=== PATIENT | female | born 1945 | race Caucasian/White ===

== ENCOUNTER 2024-12-08 11:46 | Emergency (ER) | payer OTHER ==
[~2024-12-08] VITALS: Ht 165.1 cm; Wt 97.1 kg
[2024-12-08 12:54] LABS: Basophils # (auto) 0.1 10 ^3/uL (0-0.2); Eosinophils # (auto) 0.1 10 ^3/uL (0-0.8); Eosinophils % (auto) 1.4 % (0.0-7.0); Hematocrit 37.2 % (36.0-46.0); Hemoglobin 12.4 g/dL (12.2-16.2); Lymphocytes # (auto) 1.5 10 ^3/uL (0.4-5.4); Lymphocytes % (auto) 16.4 % (10.0-50.0); Mean Corpuscular Hemoglobin 27.5 pg (28.0-32.0); Mean Corpuscular Hgb Conc. 33.3 g/dL (32.0-36.0); Mean Corpuscular Volume 82.4 fL (80.0-100.0); Monocytes # (auto) 0.8 10 ^3/uL (0-1.3); Monocytes % (auto) 8.3 % (0.0-12.0); Neutrophils # (auto) 6.6 10 ^3/uL (1.6-8.6); Neutrophils % (auto) 72.9 % (37.0-80.0); Nucleated Red Blood Cells % 0.1 %; Platelet Count (auto) 256 10^3/uL (140-450); Red Blood Cells 4.51 10^6/uL (4.0-5.20); Red Cell Distribution Width 16.9 % (11.8-14.3); White Blood Cell 9.1 10^3/uL (4.4-10.8)
--- NOTE | 2024-12-08 12:56 | ED.PDOC ---
Musculoskeletal HPI Comments 79y F who presents to the ED for chief complaint of R leg pain. Pt states she has been having bilateral lower extremity swelling since late September 2024. Pt states she has noted increased swelling since and states over the past few days, noticed shortness of breath, nausea and dysuria. Pt states she has history of DM and states she has recently seen media librarian and state she had some of her DM medications changed and adjusted. Pt in the ED, has extensive history including DM, HTN, HLD, thyroid disease, DVT x2, CKD x 3 with noted aortic stenosis. Pt otherwise denies chest pain, shortness of breath, fever, cough, chills, headache, fever, or dizziness. Pt in the ED, is able to bear weight on her bilateral lower extremities. Pt otherwise denies any other symptoms at this time. Time Seen by MD: 12:37 Reviewed Notes: Nurses Notes, Medications, Allergies Information Source: Patient Mode of Arrival: Ambulatory Brought in by: self Location: Bilateral Extremity Location: Leg Timing: Hours, Weeks Prehospital treatment: None Severity: Moderate Able to Move Extremity: Yes Bear Weight: Limited Pain: Moderate Mechanism: Spontaneous Circumstances: Unknown Onset of Symptoms: Spontaneous Symptoms: Swelling, Pain DVT Risk Factors: NONE Last Tetanus: Unknown Associated signs and symptoms: SOB, Leg pain, None (dysuria) Past Medical History PAST MEDICAL HISTORY: CKF, DM, High Lipids, HTN, Thyroid Past Medical History (Other): aortic stenosis, Surgical History: Appendectomy, Hernia Repair, Hysterectomy, Tonsillectomy Surgical History (Other): carpal tunnel, CORRUGATOR History: Denies all CORRUGATOR Hx Family History Family History: Family hx of DM Social History Smoker: Non-Smoker Alcohol: Denies ETOH Use Drugs: Denies Drug Use Lives In: Home Constitutional: denies: chills, diaphoresis, fatigue, fever, malaise, sweats, weakness, others EENTM: denies: blurred vision, double vision, ear bleeding, ear discharge, ear drainage, ear pain, ear ringing, eye pain, eye redness, hearing loss, mouth pain, mouth swelling, nasal discharge, nose bleeding, nose congestion, nose pain, photophobia, tearing, throat pain, throat swelling, voice changes, others Respiratory: reports: shortness of breath; denies: cough, hemoptysis, orthopnea, SOB at rest, SOB with excertion, stridor, wheezing, others Cardiovascular: denies: chest pain, dizzy spells, diaphoresis, Dyspnea on exertion, edema, irregular heart beat, left arm pain, lightheadedness, palpitations, PND, syncope, others Gastrointestinal: reports: nausea; denies: abdomen distended, abdominal pain, blood streaked bowels, constipated, diarrhea, dysphagia, difficulty swallowing, hematemesis, melena, poor appetite, poor fluid intake, rectal bleeding, rectal pain, vomiting, others Genitourinary: reports: dysuria; denies: abnormal vagina bleeding, burning, dyspareunia, flank pain, frequency, hematuria, incontinence, pain, , vagina discharge, urgency, others Neurological: denies: dizziness, fainting, headache, left sided numbness, left sided weakness, numbness, paresthesia, pre-existing deficit, right sided numbness, right sided weakness, seizure, speech problems, tingling, tremors, weakness, others Musculoskeletal: reports: joint swelling (b/l lower extremity); denies: back pain, gout, joint pain, muscle pain, muscle stiffness, neck pain, others Integumetry: denies: bruises, change in color, change in hair/nails, dryness, laceration, lesions, lumps, rash, wounds, others Allergic/Immunocompromised: denies: Difficulty Healing, Frequent Infections, Hives, Itching, others Hematologic/Lymphatic: denies: anemia, blood clots, easy bleeding, easy bruising, swollen glands, others Endocrine: denies: excessive hunger, excessive sweating, excessive thirst, excessive urination, flushing, intolerance to cold, intolerance to heat, unexplained weight gain, unexplained weight loss, others Psychiatric: denies: anxiety, bipolar disorder, depression, hopeless, panic disorder, schizophrenia, sleepless, suicidal, others All Other Systems: Reviewed and Negative Physical Exam General Appearance: Moderate Distress HEENT: Normal ENT Inspection, Pharynx Normal, TMs Normal Neck: Full Range of Motion, Non-Tender, Normal, Normal Inspection Respiratory: Chest Non-Tender, Lungs Clear, No Accessory Muscle Use, No Respi ratory Distress, Normal Breath Sounds Cardiovascular: No Edema, No JVD, No Murmur, No Gallop, Normal Peripheral Pulses, Regular Rate/Rhythm Breast Exam: Deferred Gastrointestinal: No Organomegaly, Non Tender, No Pulsatile Mass, Normal Bowel Sounds, Soft Genitalia: Deferred Pelvic: Deferred Rectal: Deferred Extremities: No calf tenderness, Normal capillary refill, Pedal edema Musculoskeletal : Apperance: Normal Neurologic: Alert, slab puller II-XII nml as Tested, Motor Weakness, Normal Affect, Normal Mood, No Sensory Deficits Cerebellar Function: Normal Reflexes: Normal Skin: Dry, Normal Color, Warm Lymphatic: No Adenopathy Was a procedure done? Was a procedure done?: No EKG EKG : Pulse Rate (adult): 75 [place]: RAD Cardiac Rhythm: NSR Block: None Hypertrophy: None ST: Normal Differential Diagnosis EXT Differential Diagnosis: Cellulitis, CHF, Deep Vein Thrombosis, DJD Other Differential Diagnosis uncontrolled DM, neuropathy, X-Ray, Labs, Meds, VS Vital Signs Date Time Temp Pulse Resp B/P (MAP) Pulse Ox O2 Delivery O2 Flow Rate FiO2 12/08/24 14:51 171/66 12/08/24 13:27 74 20 95 Room Air* 0 21 12/08/24 13:10 98.2 74 20 144/67 (92) 95 98.2 12/08/24 12:56 75 12/08/24 12:39 75 12/08/24 12:02 98.3 74 18 163/63 (96) 94 98.3 Lab Test 12/08/24 13:51 12/08/24 12:43 12/08/24 12:25 12/08/24 12:19 Range/Units Troponin I High Sensitivity 6 6 </=34 ng/L White Blood Count 9.1 4.4-10.8 10^3/uL Red Blood Count 4.51 4.0-5.20 10^6/uL Hemoglobin 12.4 12.2-16.2 g/dL Hematocrit 37.2 36.0-46.0 % Mean Corpuscular Volume 82.4 80.0-100.0 fL Mean Corpuscular Hemoglobin 27.5 L 28.0-32.0 pg Mean Corpuscular Hemoglobin Concent 33.3 32.0-36.0 g/dL Red Cell Distribution Width 16.9 H 11.8-14.3 % Platelet Count 256 140-450 10^3/uL Mean Platelet Volume 7.9 6.9-10.8 fL Neutrophils (%) (Auto) 72.9 37.0-80.0 % Lymphocytes (%) (Auto) 16.4 10.0-50.0 % Monocytes (%) (Auto) 8.3 0.0-12.0 % Eosinophils (%) (Auto) 1.4 0.0-7.0 % Basophils (%) (Auto) 1.0 0.0-2.0 % Neutrophils # (Auto) 6.6 1.6-8.6 10 ^3/uL Lymphocytes # (Auto) 1.5 0.4-5.4 10 ^3/uL Monocytes # (Auto) 0.8 0-1.3 10 ^3/uL Eosinophils # (Auto) 0.1 0-0.8 10 ^3/uL Basophils # (Auto) 0.1 0-0.2 10 ^3/uL Nucleated Red Blood Cells 0.1 % D-Dimer, Quantitative 0.43 0.0-0.49 mg/L FEU Sodium Level 141 136-145 mmol/L Potassium Level 3.6 3.5-5.1 mmol/L Chloride Level 104 98-107 mmol/L Carbon Dioxide Level 28 20-31 mmol/L Anion Gap 9 5-15 Blood Urea Nitrogen 23 9-23 mg/dL Creatinine 1.26 H 0.550-1.02 mg/dL Glomerular Filtration Rate Calc 44 >90 mL/min BUN/Creatinine Ratio 18.3 10.0-20.0 Serum Glucose 273 H 74-106 mg/dL Calcium Level 9.8 8.7-10.4 mg/dL B-Type Natriuretic Peptide 178.92 0-100 pg/mL POC Glucose 250 H 70-106 mg/dl Urine Color Light-yellow Yellow Urine Clarity Turbid H Clear Urine pH 5.5 5.0-9.0 Urine Specific [place] 1.008 1.001-1.035 Urine Protein 1+ H Negative Urine Ketones Negative Negative Urine Blood 2+ H Negative /uL Urine Nitrite Negative Negative Urine Bilirubin Negative Negative Urine Urobilinogen Normal Negative mg/dL Urine Leukocyte Esterase 3+ Negative /uL Urine RBC 5 0 - 4 /hpf Urine Microscopic WBC 122 H 0-5 /HPF Urine Squamous Epithelial Cells None seen <5 /hpf Urine Bacteria Few H None Seen /hpf Urine Glucose Trace Normal mg/dL Current Medications Medications (Trade) Dose Ordered Sig/Ronn Route Start Time Stop Time Status Last Admin Furosemide (Lasix Injection) 40 mg ONCE ONCE IV 12/08/24 12:45 12/08/24 12:46 DC 12/08/24 14:51 CHEST RADIOGRAPH IMPRESSION: Chronic fibrotic changes with probable superimposed multifocal airspace disease. Bilateral lower extremity venous duplex Impression: No right or left femoropopliteal venous thrombosis. Hep-Lock was established. The patient was given Lasix 40 mg IV push. The urine test is positive for a UTI. The patient was being given Rocephin 1 g IV piggyback. Patient's CBC is within normal limits. The chemistry panel shows a creatinine of 1.26 The patient was hyperglycemic at 273 At this time, the patient was being admitted to the hospitalist. We will continue to follow the patient's respiratory status as well as the leg edema. Images Reviewed?: Images reviewed and evaluated by me Time of 1ST Reevaluation: 13:10 Reevaluation 1ST: Unchanged Patient Education/Counseling: Diagnosis, Treatment, Prognosis Family Education/Counseling: No Family Present Additional Information -Reviewed patient's previous visit(s): - The following tests were ordered, and results were reviewed by me: trop x3, cbc, d-dimer, bnp, ua, chest x-ray, ekg x3, bmp, radha lower dvt, t - Additional information was gathered from interviewing the following independent Historian: patient - I reviewed and agreed with the following test results read by other provider: radiologist - I discussed treatments and results with medical personnel and: patient Comprehensive systems review obtained and negative except for what is stated in the HPI. Departure 1 Departure Time of Disposition: 16:51 Impression: Primary Impression: Generalized weakness Additional Impressions: Pedal edema UTI (urinary tract infection) Qualified Codes: N30.00 - Acute cystitis without hematuria Disposition: ADMITTED INPATIENT Admit to: Tele Condition: Fair Critical Care Note Critical Care Time?: No Stability Stability form required: No Heart Score Heart Score: Heart Score Response (Comments) Value History N/A 0 EKG N/A 0 Age N/A 0 Risk Factors N/A 0 Troponin N/A 0 Total 0 I personally scribed for SULEMA WARD MD ([email or web address]) on 12/08/24 at 12:56. Electronically submitted by Sohail Barclay ([email or web address]). I personally scribed for SULEMA WARD MD ([email or web address]) on 12/08/24 at 12:58. Electronically submitted by [facility]cl[facility] I personally scribed for SULEMA WARD MD ([email or web address]) on 12/08/24 at 16:43. Electronically submitted by Sohail Barclay ([facility] [place] SULEMA WARD MD Dec 08, 2024 12:56
[2024-12-08 13:00] LABS: Chloride 104 mmol/L (98-107); Potassium 3.6 mmol/L (3.5-5.1); Sodium 141 mmol/L (136-145)
[2024-12-08 13:01] LABS: Anion Gap 9 (5-15); Calcium 9.8 mg/dL (8.7-10.4); Carbon Dioxide 28 mmol/L (20-31)
[2024-12-08 13:06] LABS: BUN/Creatinine Ratio 18.3 (10.0-20.0)
[2024-12-08 13:07] LABS: Blood Urea Nitrogen 23 mg/dL (9-23); Glucose 273 mg/dL (74-106)
--- NOTE | 2024-12-08 13:08 | DVH ---
Chest x-ray Technique: PA and lateral views CLINICAL INDICATION: Shortness of breath FINDINGS: Heart size slightly enlarged. Aorta tortuous. No infiltrates or effusions. Mild kyphoscoli osis of the thoracic spine. IMPRESSION: 1. No acute cardiopulmonary pathology
[2024-12-08 13:27] VITALS: PULSE 74; RESP 20; O2SAT 95
[2024-12-08 14:20] LABS: Urine Bacteria FEW /hpf (None Seen); Urine Blood 2+ /uL (Negative); Urine Clarity Turbid (Clear); Urine Color Light-Yellow (Yellow); Urine Protein, UAD 1+ (Negative); Urine Specific Gravity 1.008 (1.001-1.035); Urine Squamous Epithelial Cell None Seen /hpf (<5); Urine Urobilinogen Normal (Negative); Urine WBC 122 /HPF (0-5); Urine pH 5.5 (5.0-9.0)
--- NOTE | 2024-12-08 14:45 | DVH ---
Bilateral lower extremity venous duplex Clinical History: Bilateral leg swelling Comparison: None Technique: Duplex Doppler evaluation of the deep venous systems of both lower extremities from the common femora l veins to the popliteal veins including color Doppler and spectral/pulsed waveform analysis was perf ormed. Findings: RIGHT SIDE: The common femoral vein demonstrates appropriate compressibility and waveform variability. There is compressibility/patency of the great saphenous vein at the proximal thigh. The femoral vein demonstrates appropriate compressibility and waveform variability. The deep femoral vein demonstrates appropriate compressibility and waveform variability. The popliteal vein demonstrates appropriate compressibility and waveform variability. There is normal compressibility at the tibioperoneal trunk. LEFT SIDE: The common femoral vein demonstrates appropriate compressibility and waveform variability. There is compressibility/patency of the great saphenous vein at the proximal thigh. The femoral vein demonstrates appropriate compressibility and waveform variability. The deep femoral vein demonstrates appropriate compressibility and waveform variability. The popliteal vein demonstrates appropriate compressibility and waveform variability. There is normal compressibility at the tibioperoneal trunk. Impression: No right or left femoropopliteal venous thrombosis.
[2024-12-08] MEDS: FUROSEMIDE 40 MG/4 ML VIAL IV ONE (14:51)
[2024-12-08] MEDS ORDERED: CEPH250C PO (21:03)
[2024-12-08] MEDS: cloNIDine HCL 0.1 MG TAB PO ONE (21:08)
--- NOTE | 2024-12-08 21:13 | DVHINCON2 ---
BRE RAJAN NP 12/08/242112: Date of service: Dec 08, [address] Damico Reason for Consultation Medical management History of Present Illness 79-year-old female with past medical history of DM, hypertension, HLD, CKD presents after being sent in by her desktop support technician for increased swelling of bilateral lower extremities. Patient endorsed she takes Lasix 20 mg tablet every day, prescribed by her project management. Previous cardiac evaluation was in February of last year with Dr. Serrano. At this time patient emergency department evaluation which includes CBC, BMP, troponin level, BNP, CXR has been unremarkable. UA was positive for leukocyte esterase. Patient endorsed dysuria. At this time patient denies fevers, chills, dizziness, confusion, shortness of breath, chest pain, palpitations, abdominal pain. Past Medical History Hypertension, CKD, DM, HLD Home Meds Active Scripts Cephalexin (KEFLEX CAPSULE) 250 Mg Cp, 1 CAP PO QID, #28 CAP Prov:SULEMA DAMICO MD 12/08/24 Review of Systems 10 systems reviewed and negative except as per HPI Vital Signs Vital Signs Date Time Temp Pulse Resp B/P (MAP) Pulse Ox O2 Delivery O2 Flow Rate FiO2 12/08/24 21:08 200/85 12/08/24 21:02 98.6 89 20 100 98.6 12/08/24 13:27 Room Air* 0 21 Physical Exam GENERAL: Patient appearing stated age, in no acute distress. HEENT: Pupils equal and reactive to light and accommodation. Extraocular muscles intact. Mucous membranes moist. Conjunctivae pink. Anicteric sclerae. LUNGS: Bilateral air entry. No wheezes, rhonchi or rales. HEART: Regular rate and rhythm. Normal S1 and S2. ABDOMEN: BS normoactive, soft, nontender, and nondistended. No CVA tenderness. EXTREMITIES: No clubbing, cyanosis. No calf tenderness. Pedal pulses 2+. BLE edema 2+ NEUROLOGICAL: The patient is alert and oriented times 3. CN II-XII intact. No focal deficits on gross sensory or motor examination. Labs/Diagnostic Data Labs Test 12/08/24 13:51 12/08/24 12:43 12/08/24 12:25 12/08/24 12:19 Range/Units Troponin I High Sensitivity 6 </=34 ng/L White Blood Count 9.1 4.4-10.8 10^3/uL Red Blood Count 4.51 4.0-5.20 10^6/uL Hemoglobin 12.4 12.2-16.2 g/dL Hematocrit 37.2 36.0-46.0 % Mean Corpuscular Volume 82.4 80.0-100.0 fL Mean Corpuscular Hemoglobin 27.5 L 28.0-32.0 pg Mean Corpuscular Hemoglobin Concent 33.3 32.0-36.0 g/dL Red Cell Distribution Width 16.9 H 11.8-14.3 % Platelet Count 256 140-450 10^3/uL Mean Platelet Volume 7.9 6.9-10.8 fL Neutrophils (%) (Auto) 72.9 37.0-80.0 % Lymphocytes (%) (Auto) 16.4 10.0-50.0 % Monocytes (%) (Auto) 8.3 0.0-12.0 % Eosinophils (%) (Auto) 1.4 0.0-7.0 % Basophils (%) (Auto) 1.0 0.0-2.0 % Neutrophils # (Auto) 6.6 1.6-8.6 10 ^3/uL Lymphocytes # (Auto) 1.5 0.4-5.4 10 ^3/uL Monocytes # (Auto) 0.8 0-1.3 10 ^3/uL Eosinophils # (Auto) 0.1 0-0.8 10 ^3/uL Basophils # (Auto) 0.1 0-0.2 10 ^3/uL Nucleated Red Blood Cells 0.1 % D-Dimer, Quantitative 0.43 0.0-0.49 mg/L FEU Sodium Level 141 136-145 mmol/L Potassium Level 3.6 3.5-5.1 mmol/L Chloride Level 104 98-107 mmol/L Carbon Dioxide Level 28 20-31 mmol/L Anion Gap 9 5-15 Blood Urea Nitrogen 23 9-23 mg/dL Creatinine 1.26 H 0.550-1.02 mg/dL Glomerular Filtration Rate Calc 44 >90 mL/min BUN/Creatinine Ratio 18.3 10.0-20.0 Serum Glucose 273 H 74-106 mg/dL Calcium Level 9.8 8.7-10.4 mg/dL B-Type Natriuretic Peptide 178.92 0-100 pg/mL POC Glucose 250 H 70-106 mg/dl Urine Color Light-yellow Yellow Urine Clarity Turbid H Clear Urine pH 5.5 5.0-9.0 Urine Specific [place] 1.008 1.001-1.035 Urine Protein 1+ H Negative Urine Ketones Negative Negative Urine Blood 2+ H Negative /uL Urine Nitrite Negative Negative Urine Bilirubin Negative Negative Urine Urobilinogen Normal Negative mg/dL Urine Leukocyte Esterase 3+ Negative /uL Urine RBC 5 0 - 4 /hpf Urine Microscopic WBC 122 H 0-5 /HPF Urine Squamous Epithelial Cells None seen <5 /hpf Urine Bacteria Few H None Seen /hpf Urine Glucose Trace Normal mg/dL Assessment Bilateral lower extremity edema Hypertension Acute UTI with hematuria [facility] Chart was reviewed in its entirety including labs, imaging, vital signs, previous history, history of present illness. While in the emergency department patient has remained hemodynamically stable. Although hypertensive patient has no complaints of chest pain, dizziness, palpitations. Oxygen saturation has been above 95% on room air. Patient with treated with a dose of IV Lasix to alleviate bilateral lower extremity edema. Patient also treated for hypertension prior to discharge. Vital signs: temperature 98.6, blood pressure 148/66, heart rate 82, RR 20, O2 saturation 10 0% room air. Problems(with codes): (1) Pedal edema (2) UTI (urinary tract infection) Plan/Recommendation Patient to be discharged home with the prescription for oral antibiotics. O case management has been consulted to set up home safety evaluation. Will also follow up on outpatient basis with an urgent cardiac evaluation including ech ocardiogram. Head Of Marketing Analytics can review antihypertensive medications and need for increase in diuretic therapy at this time. Also [facility]. Plan of care was discussed in detail with both the patient and her daughter. Who both agreed with discharging the patient home and outpatient follow up. Patient was provided with strict ER precautions including but not limited to fevers, chills, dizziness, headache, syncope, chest pain, shortness of breath, palpitations, nausea, vomiting, swelling of the legs does not improve. If any of these occur please return to the nearest emergency department for continue evaluation. Plan was discussed in detail with supervising physician. Plan discussed with: Patient, Daughter ZITA REMY MD 12/09/24 1615: Home Meds Active Scripts Cephalexin (KEFLEX CAPSULE) 250 Mg Cp, 1 CAP PO QID, #28 CAP Prov:SULEMA DAMICO MD 12/08/24 Plan/Recommendation Patient's chart is reviewed and discussed with the nurse practitioner. I agree with the nurse practitioner's evaluation, documentation, assessment and care plan as outlined. BRE RAJAN NP Dec 08, 2024 21:13 ZITA REMY MD Dec 09, 2024 16:15
[2024-12-08 22:14] VITALS: BP 148/66; PULSE 82; RESP 20; TEMP 98.6; O2SAT 100
--- NOTE | 2024-12-09 06:55 | ECG ---
[facility] Test Date: 2024-12-08 Test Time: 12:39:51 Pat Name: FLORENCIO APONTE Department: ED Room: Gender: F Traffic Analyst: TIAGO : 1945 Requested By: SULEMA WARD Order Number: [id number] Reading MD: Leoncio Hoff Measurements Intervals [place] Rate: 75 P: 61 NM: 200 QRS: 82 QRSD: 87 T: -2 QT: 393 QTc: 439 Interpretive Statements Sinus rhythm Borderline right axis deviation Low voltage, precordial leads Borderline T abnormalities, inferior leads Electronically Signed On 12-11-2024 17:22:27 PDT by Leoncio Hoff Please click the below link to view image of tracing.
== END 2024-12-08 22:19 | disposition home or self-care (01) ==
LOC: ER 11:46
DX: R53.1 Weakness (principal); R60.9 Edema, unspecified; N39.0 Urinary tract infection, site not specified; I12.9 Hypertensive chronic kidney disease with stage 1 through stage 4 chronic kidney disease, or unspecified chronic kidney disease; E11.22 Type 2 diabetes mellitus with diabetic chronic kidney disease; N18.9 Chronic kidney disease, unspecified; I35.0 Nonrheumatic aortic (valve) stenosis; E78.5 Hyperlipidemia, unspecified; R06.02 Shortness of breath; Z90.710 Acquired absence of both cervix and uterus; Z90.49 Acquired absence of other specified parts of digestive tract; Z98.890 Other specified postprocedural states; Z79.899 Other long term (current) drug therapy
CPT/HCPCS: 36415; 71046; 80048; 81001; 82947; 83880; 84484; 85025; 85379; 93005; 93970; 96374; 99285; J1940; 82962